=== PATIENT | male | born 1980 | race Caucasian/White ===

== ENCOUNTER 2016-11-24 12:31 | Emergency (ER) | payer SELFPAY ==
[2016-11-24 12:32] VITALS: BMI 32.4
[2016-11-24 12:43] VITALS: RESP 18
--- NOTE | 2016-11-24 13:33 | RAD ---
PROCEDURE: Right Foot Radiographs. HISTORY: r/o fx (tenderness to 5th metatarsal) COMPARISON: None. FINDINGS: BONES: Bone alignment and mineralization are normal. There is no acute fracture or bone destruction. There is a small plantar calcaneal spur and dorsal calcaneal enthesophyte. JOINTS: Normal. SOFT TISSUES: Normal. OTHER FINDINGS: None. IMPRESSION: No acute fracture or dislocation.
[2016-11-24 14:09] VITALS: BP 124/75; PULSE 75; TEMP 98.2; O2SAT 98
--- NOTE | 2016-11-24 15:52 | C.PDOC ---
History Of Present Illness 36 year old male presents to the ED with complaints of worsening right foot pain for the past few weeks. Patient states he walks a lot at work and notes that makes it worse and elevating it provides relief. Denies trauma, fall, change in sensation , calf pain, or any other complaints at this time. Chief Complaint (Nursing): Lower Extremity Problem/Injury History Per: Patient History/Exam Limitations: no limitations Onset/Duration Of Symptoms: Days Current Symptoms Are (Timing): Still Present Severity: Mild Past Medical History Reviewed: Historical Data, Nursing Documentation, Vital Signs Vital Signs: Last Vital Signs Temp 98.2 F 11/24/16 14:07 Pulse 75 11/24/16 14:07 Resp 18 11/24/16 14:07 BP 124/75 11/24/16 14:07 Pulse Ox 98 11/24/16 15:56 - Medical History PMH: Back Problems Family History: States: Unknown Family Hx - Social History Hx Tobacco Use: Yes (quit 1 month ago) Hx Alcohol Use: No Hx Substance Use: No - Immunization History Hx Tetanus Toxoid Vaccination: No Hx Influenza Vaccination: No Hx Pneumococcal Vaccination: No Review Of Systems Except As Marked, All Systems Reviewed And Found Negative. Constitutional: Negative for: Fever, Chills Musculoskeletal: Positive for: Foot Pain (+Right foot pain) Neurological: Negative for: Weakness, Numbness Physical Exam - Physical Exam Appears: Non-toxic, No Acute Distress Skin: Normal Color, Warm, Dry Head: Atraumatic, Normacephalic Eye(s): bilateral: Normal Inspection Oral Mucosa: Moist Chest: Symmetrical Respiratory: No Accessory Muscle Use Extremity: Normal ROM, Tenderness (+Tenderness to the lateral aspect of the right foot), No Calf Tenderness, Capillary Refill (< 2 seconds), No Deformity, No Swelling, No Other (No contusions, abrasions, or lacerations to the right foot) Pulses: Left Dorsalis Pedis: Normal, Right Dorsalis Pedis: Normal Neurological/Psych: Oriented x3, Normal Speech, Normal Cognition, Normal Motor, Normal Sensation ED Course And Treatment O2 Sat by Pulse Oximetry: 98 (Room air) Pulse Ox Interpretation: Normal - Other Rad Right Foot X-ray X-Ray: Viewed By Me, Read By Radiologist Interpretation: IMPRESSION: No acute fracture or dislocation. Progress Note: Right Foot X-ray ordered and reviewed. Patient treated with Motrin. Disposition - Disposition Referrals: [facility] Andrés Hollyvanesa, [Non-Staff] - Disposition: HOME/ ROUTINE Disposition Time: 13:10 Condition: GOOD Additional Instructions: Thank you for letting us take care of you today. Your provider was Dr. Linda. You were treated for foot sprain. The emergency medical care you received today was directed at your acute symptoms. If you were prescribed any medication, please fill it and take as directed. It may take several days for your symptoms to resolve. Return to the Emergency Department if your symptoms worsen, do not improve, or if you have any other problems. Please contact your doctor or call one of the physicians/clinics you have been referred to that are listed on the Patient Visit Information form that is included in your discharge packet. Bring any paperwork you were given at discharge with you along with any medications you are taking to your follow up visit. Our treatment cannot replace ongoing medical care by a primary care provider (PCP) outside of the emergency department. Thank you for allowing the [facility] team to be part of your care today. Follow up with your doctor in 3-4 days to be re-evaluated. Prescriptions: Ibuprofen [Motrin] 600 mg PO Q6 PRN #20 tab PRN Reason: Pain, Moderate (4-7) Instructions: Foot Sprain (ED) - Clinical Impression Clinical Impression: Sprain of foot - Scribe Statement The provider has reviewed the documentation as recorded by the Scribe Milton Hernandez. Provider Attestation: All medical record entries made by the Scribe were at my direction and personally dictated by me. I have reviewed the chart and agree that the record accurately reflects my personal performance of the history, physical exam, medical decision making, and the department course for this patient. I have also personally directed, reviewed, and agree with the discharge instructions and disposition.
== END 2016-11-24 14:09 | disposition home or self-care (01) ==
LOC: C.ER 12:31
DX: S93.601A Unspecified sprain of right foot, initial encounter (principal); X58.XXXA Exposure to other specified factors, initial encounter

== ENCOUNTER 2016-12-29 20:27 | Emergency (ER) | payer SELFPAY ==
[2016-12-29 20:27] VITALS: BMI 32.4
[2016-12-29 20:41] VITALS: TEMP 97.9; O2SAT 96
[2016-12-29] MEDS ORDERED: Oxycodone/Acetaminophen 5/325 mg Tab PO STA (21:06)
[2016-12-29] MEDS ORDERED: Oxycodone/Acetaminophen 5/325 mg Tab ONE (21:11)
--- NOTE | 2016-12-29 21:32 | C.PDOC ---
History Of Present Illness 36 yr old male presents to the ER stating yesterday while cleaning the stairs, he was walking backwards and he fell, landing on his right buttock. Patient states he used Motrin at the time but the pain persists. Patient denies abdominal pain, dysuria, incontinence, back pain, shoulder pain, weakness or numbness. (-) head trauma - HPI Time Seen by Provider: 12/29/16 20:40 Chief Complaint (Nursing): Trauma History Per: Patient History/Exam Limitations: no limitations Onset/Duration Of Symptoms: Days (1) Past Medical History Reviewed: Historical Data, Nursing Documentation, Vital Signs Vital Signs: Last Vital Signs Temp 97.9 F 12/29/16 21:40 Pulse 90 12/29/16 21:40 Resp 20 12/29/16 21:40 BP 150/80 12/29/16 21:40 Pulse Ox 96 12/29/16 21:40 - Medical History PMH: Back Problems Family History: States: No Known Family Hx, Unknown Family Hx - Social History Hx Tobacco Use: Yes (quit 1 month ago) Hx Alcohol Use: No Hx Substance Use: No - Immunization History Hx Tetanus Toxoid Vaccination: No Hx Influenza Vaccination: No Hx Pneumococcal Vaccination: No Review Of Systems Except As Marked, All Systems Reviewed And Found Negative. Gastrointestinal: Negative for: Abdominal Pain Genitourinary: Negative for: Dysuria, Incontinence Musculoskeletal: Positive for: Other ((+) Right buttock pain ). Negative for: Shoulder Pain, Back Pain Neurological: Negative for: Weakness, Numbness Physical Exam - Physical Exam Appears: Well, Non-toxic, No Acute Distress Skin: Warm, Dry, No Rash Head: Atraumatic, Normacephalic Eye(s): bilateral: Normal Inspection, EOMI Nose: Normal Oral Mucosa: Moist Neck: Normal, Normal ROM, No Paracervical Tenderness, Supple Chest: Symmetrical Cardiovascular: Rhythm Regular Respiratory: Normal Breath Sounds Gastrointestinal/Abdominal: Normal Exam, Soft, No Tenderness, No Guarding, No Rebound Extremity: No Calf Tenderness, Other ((+) Tenderness to the right glutial fold. No eccyhmosis. No abrasions. No barrera rectal pain or tenderness. No signs of infection or abscess. ) Neurological/Psych: Oriented x3, Normal Speech, Normal Motor, Normal Sensation Gait: Steady ED Course And Treatment O2 Sat by Pulse Oximetry: 96 - Other Rad X-Ray - Right Hip X-Ray: Interpreted by Me, Viewed By Me Interpretation: No fractures. No dislocations. Medical Decision Making Medical Decision Making: PLAN: * X-Ray - Right Hip * Percocet PO Disposition - Disposition Disposition: HOME/ ROUTINE Disposition Time: 21:39 Condition: STABLE Additional Instructions: Follow up with your primary medical doctor or clinic in 2-5 days for further evaluation. Return to the emergency department at any time if symptoms persist or worsen. Prescriptions: Naproxen [Naprosyn] 1 tab PO BID PRN #20 tab PRN Reason: Pain traMADol [Ultram] 50 mg PO Q8 #20 tab Instructions: Back Pain (ED) - Clinical Impression Clinical Impression: Contusion of buttock - PA / [employer] / Resident Statement MD/DO has reviewed & agrees with the documentation as recorded. - Scribe Statement The provider has reviewed the documentation as recorded by the Scribe Liliana Romero All medical record entries made by the Scribe were at my direction and personally dictated by me. I have reviewed the chart and agree that the record accurately reflects my personal performance of the history, physical exam, medical decision making, and the department course for this patient. I have also personally directed, reviewed, and agree with the discharge instructions and disposition.
[2016-12-29 23:25] VITALS: BP 150/80; PULSE 90; RESP 20
--- NOTE | 2016-12-30 08:06 | RAD ---
PROCEDURE: HISTORY: trauma COMPARISON: None TECHNIQUE: AP view of the pelvis and applicable frog leg views obtained. FINDINGS: Bilateral mild superolateral hip joint space narrowing with minimal superolateral acetabular spurring - No fracture dislocation possible tiny bone island over left femoral head Large body habitus Left lateral iliac crests tug induced osseous hypertrophy IMPRESSION: No fracture or dislocation
== END 2016-12-29 21:44 | disposition home or self-care (01) ==
LOC: C.ER 20:27
DX: S30.0XXA Contusion of lower back and pelvis, initial encounter (principal); W10.8XXA Fall (on) (from) other stairs and steps, initial encounter; Y93.89 Activity, other specified; Y92.008 Other place in unspecified non-institutional (private) residence as the place of occurrence of the external cause

== ENCOUNTER 2018-03-12 01:15 | Emergency (ER) | payer BC ==
[2018-03-12 01:16] VITALS: BMI 32.4
[2018-03-12 01:39] VITALS: RESP 12; TEMP 97.8
--- NOTE | 2018-03-12 02:17 | C.PDOC ---
History Of Present Illness 38 year old male presents to the emergency department with complaints of feeling dizzy when he gets out of bed. 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 He denies chest pain, palpitations, and shortness of breath. Time Seen by Provider: 03/12/18 01:45 Chief Complaint (Nursing): Dizziness/Lightheaded History Per: Patient History/Exam Limitations: no limitations Onset/Duration Of Symptoms: Hrs Current Symptoms Are (Timing): Still Present Activity At Onset Of Symptoms: Other (getting out of bed) Seizure Or Post-ictal Symptoms: None Possible Causative Factor(s): Decreased PO Intake Fall Associated With With Symptoms: No Severity: Mild Pain Scale Rating Of: 4 Past Medical History Reviewed: Historical Data, Nursing Documentation, Vital Signs Vital Signs: Last Vital Signs Temp 97.8 F 03/12/18 01:33 Pulse 93 H 03/12/18 01:33 Resp 12 03/12/18 01:33 BP 144/87 03/12/18 01:33 Pulse Ox 99 03/12/18 02:29 - Medical History PMH: Back Problems Denies: Chronic Kidney Disease Surgical History: No Surg Hx Family History: States: No Known Family Hx - Social History Hx Tobacco Use: Yes (quit 1 month ago) Hx Alcohol Use: No Hx Substance Use: No - Immunization History Hx Tetanus Toxoid Vaccination: No Hx Influenza Vaccination: No Hx Pneumococcal Vaccination: No Review Of Systems Cardiovascular: Negative for: Chest Pain, Palpitations Respiratory: Negative for: Shortness of Breath Neurological: Positive for: Dizziness Physical Exam - Physical Exam Appears: Non-toxic, No Acute Distress Skin: Warm, Dry Head: Normacephalic Eye(s): bilateral: Normal Inspection Oral Mucosa: Moist Throat: No Erythema, No Exudate Neck: Trachea Midline, Supple Chest: Symmetrical, No Tenderness Cardiovascular: Rhythm Regular, No Murmur Respiratory: No Rales, No Rhonchi, No Wheezing Gastrointestinal/Abdominal: Soft, No Tenderness, No Distention, No Guarding, No Rebound Extremity: No Tenderness, No Swelling Pulses: Left Dorsalis Pedis: Normal, Right Dorsalis Pedis: Normal Neurological/Psych: Oriented x3, Normal Speech, Normal Cognition ED Course And Treatment - Laboratory Results Result Diagrams: 03/12/18 02:14 03/12/18 02:14 ECG: Interpreted By Me, Viewed By Me ECG Rhythm: Sinus Rhythm (87), R BBB, Nonspecific Changes O2 Sat by Pulse Oximetry: 99 (RA) Pulse Ox Interpretation: Normal - Radiology CXR: Interpreted by Me, Viewed By Me CXR Interpretation: No: Infiltrates, Fracture, Pnemothorax Progress Note: Plan: EKG. CMP. Drug Screen. TSH. Troponin. CBC. PTT. Prothrombin Time. CXR Two Views. Urinalysis Reevaluation Time: 04:04 Medical Decision Making Medical Decision Making: Upon provider reevaluation patient is feeling better, is medically stable, and requires no further treatment in the ED at this time. Patient will be discharged home . Counseling was provided and all questions were answered regarding diagnosis and need for follow up with the dr ames. There is agreement to discharge plan. Return if symptoms persist or worsen. Disposition Counseled Patient/Family Regarding: Studies Performed, Diagnosis, Need For Followup, Smoking Cessation - Disposition Referrals: Tisha TOLEDO,Jing Dorado MD [Non-Staff] - Disposition: HOME/ ROUTINE Disposition Time: 01:40 Condition: FAIR Additional Instructions: Please return if symptoms recurs Instructions: Dizziness, Nonvertigo, (DC) Forms: Patterns (Swedish) - Clinical Impression Clinical Impression: Dizziness - Scribe Statement The provider has reviewed the documentation as recorded by the Scribe (Randy Ledezma) Provider Attestation: All medical record entries made by the Scribe were at my direction and personally dictated by me. I have reviewed the chart and agree that the record accurately reflects my personal performance of the history, physical exam, medical decision making, and the department course for this patient. I have also personally directed, reviewed, and agree with the discharge instructions and disposition.
[2018-03-12 02:18] LABS: BASO # 0.2 K/uL (0.0-0.2); BASO % 1.1 % (0.0-2.0); EOS # 0.3 K/uL (0.0-0.7); EOS % 1.9 % (0.0-4.0); HEMOGLOBIN 14.4 g/dL (12.0-18.0); LYMPH # 4.2 K/uL (1.0-4.3); LYMPH % 25.5 % (20.0-40.0); MEAN CORPUSCULAR HEMOGLOBIN 28.2 pg (27.0-31.0); MEAN CORPUSCULAR HGB CONC 34.4 g/dL (33.0-37.0); MONO # 0.8 K/uL (0.0-0.8); MONO % 4.7 % (0.0-10.0); NEUT # 11.1 K/uL (1.8-7.0); NEUT % 66.8 % (50.0-75.0); NRBC % 0.1 % (0.0-2.0); RBC 5.13 Mil/uL (4.40-5.90); RED CELL DISTRIBUTION WIDTH 13.1 % (11.5-14.5); WHITE BLOOD COUNT 16.6 K/uL (4.8-10.8)
[2018-03-12 02:30] LABS: ALB/GLOB RATIO 1.5 (1.0-2.1); ALBUMIN 4.2 g/dL (3.5-5.0); ALT/SGPT 50 U/L (21-72); AST/SGOT 35 U/L (17-59); BLOOD UREA NITROGEN 14 mg/dL (9-20); CALCIUM 8.9 mg/dl (8.6-10.4); GFR AFRICAN-AMERICAN > 60; GFR NON-AFRICAN AMERICAN > 60
[2018-03-12] MEDS ORDERED: Sodium Chloride 0.9% 1,000 ML IV ONE (02:49)
[2018-03-12 02:50] LABS: URINE BILIRUBIN NEGATIVE (NEGATIVE); URINE BLOOD NEGATIVE (NEGATIVE); URINE CLARITY Hazy (Clear); URINE COLOR Yellow (YELLOW); URINE GLUCOSE (UA) NORMAL (Normal); URINE LEUKOCYTE ESTERASE NEG Leu/uL (Negative); URINE PROTEIN NEGATIVE (NEGATIVE)
[2018-03-12 03:07] LABS: INR 1.1; PROTHROMBIN TIME 12.1 SECONDS (9.7-12.2)
[2018-03-12 03:09] LABS: BARBITURATES, UR NEGATIVE (NEGATIVE); BENZODIAZEPINES, UR NEGATIVE (NEGATIVE); OPIATES, UR NEGATIVE (NEGATIVE); PHENCYCLIDINE, UR NEGATIVE (NEGATIVE)
[2018-03-12 04:16] VITALS: BP 140/70; PULSE 80; O2SAT 100
--- NOTE | 2018-03-12 14:44 | RAD ---
Date of service: 03/12/2018 HISTORY: SOB COMPARISON: Comparison is made with 11/14/2015 TECHNIQUE: Chest PA and lateral FINDINGS: LUNGS: No active pulmonary disease. PLEURA: No significant pleural effusion identified. No pneumothorax apparent. CARDIOVASCULAR: Normal. OSSEOUS STRUCTURES: No significant abnormalities. VISUALIZED UPPER ABDOMEN: Normal. OTHER FINDINGS: None. IMPRESSION: No active disease.
--- NOTE | 2018-03-13 19:52 | CARD ---
APPROVED REPORT Date of service: 03/12/2018 EKG Measurement Heart [id number] <Conclusion> Normal sinus rhythm Incomplete right bundle branch block Borderline ECG
== END 2018-03-12 04:17 | disposition home or self-care (01) ==
LOC: C.ER 01:15
DX: R42 Dizziness and giddiness (principal)
CPT/HCPCS: 71046; 80053; 81001; 82948; 84443; 84484; 85025; 85610; 85730; 93005; 96360; 99285; G0480; J7030

== ENCOUNTER 2018-07-21 19:51 | Emergency (ER) | payer BC ==
[2018-07-21 19:51] VITALS: BMI 32.4
[2018-07-21 20:30] VITALS: BP 157/94; PULSE 102; TEMP 98; O2SAT 99
[2018-07-21 21:24] LABS: URINE BACTERIA FEW (<OCC); URINE BILIRUBIN NEGATIVE (NEGATIVE); URINE BLOOD 3+ (NEGATIVE); URINE CLARITY Hazy (Clear); URINE COLOR Yellow (YELLOW); URINE GLUCOSE (UA) NORMAL (Normal); URINE LEUKOCYTE ESTERASE 3+ Leu/uL (Negative); URINE PROTEIN 2+ mg/dL (NEGATIVE); URINE UROBILINOGEN NORMAL mg/dL (0.2-1.0)
--- NOTE | 2018-07-21 21:36 | C.PDOC ---
History Of Present Illness 38 year old male presents to the ER with a complaint of dysuria and hematuria for the past 2 days. Patient reports he has not been sexually active over the past 6 months. Denies back pain, abdominal pain, fever, nausea, or vomiting. Time Seen by Provider: 07/21/18 20:38 Chief Complaint (Nursing): Female Genitourinary History Per: Patient History/Exam Limitations: no limitations Onset/Duration Of Symptoms: Days (2) Current Symptoms Are (Timing): Still Present Associated Symptoms: Urinary Symptoms (Dysuria, Hematuria). denies: Fever, Nausea, Vomiting, Back Pain Alleviating Factors: None Recent travel outside of the [place]: No Past Medical History Reviewed: Historical Data, Nursing Documentation, Vital Signs Vital Signs: Last Vital Signs Temp 98 F 07/21/18 20:26 Pulse 102 H 07/21/18 20:26 Resp 18 07/21/18 20:26 BP 157/94 H 07/21/18 20:26 Pulse Ox 99 07/21/18 20:26 - Medical History PMH: Back Problems Denies: Chronic Kidney Disease Family History: States: No Known Family Hx - Social History Hx Tobacco Use: Yes (quit 1 month ago) Hx Alcohol Use: No Hx Substance Use: No - Immunization History Hx Tetanus Toxoid Vaccination: No Hx Influenza Vaccination: No Hx Pneumococcal Vaccination: No Review Of Systems Constitutional: Negative for: Fever Gastrointestinal: Negative for: Nausea, Vomiting Genitourinary: Positive for: Dysuria, Hematuria Musculoskeletal: Negative for: Back Pain Physical Exam - Physical Exam Appears: Non-toxic Skin: Normal Color, Warm, Dry Head: Atraumatic, Normacephalic Eye(s): bilateral: Normal Inspection Gastrointestinal/Abdominal: Soft, No Tenderness Back: No CVA Tenderness Extremity: Normal ROM (x4) Neurological/Psych: Oriented x3, Normal Speech ED Course And Treatment O2 Sat by Pulse Oximetry: 99 (Room air) Pulse Ox Interpretation: Normal Progress Note: Urinalysis ordered, results were positive for UTI. GC/Chlamydia sent. Patient is resting comfortably in the ER in no acute distress, vitals are stable, will discharge home with Rx and instructions to follow up with PMD or clinic for GC/Chlamydia results. 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 - Scribe Statement The provider has reviewed the documentation as recorded by the Scribmaster Sweet All medical record entries made by the Bety were at my direction and personally dictated by me. I have reviewed the chart and agree that the record accurately reflects my personal performance of the history, physical exam, medical decision making, and the department course for this patient. I have also personally directed, reviewed, and agree with the discharge instructions and disposition.
[2018-07-21 21:56] VITALS: RESP 20
== END 2018-07-21 21:55 | disposition home or self-care (01) ==
LOC: SUPCPDRO 19:51 → C.ER 19:51
DX: N39.0 Urinary tract infection, site not specified (principal)